=== PATIENT | male | born 1975 | race Caucasian/White ===

== ENCOUNTER 2018-12-22 16:11 | Outpatient (REF) | payer OTHER, SELFPAY ==
--- NOTE | 2018-12-22 15:35 | SKI_PTH ---
PATIENT: Bora Brand LOC: [facility] U#:[id number] AGE/SX: 43/M ROOM: RE12/22/[address]: Abena Brooks MD : 1975 BED: DIS: 12/22/2018 SPEC #: [id number] RECD: 12/22/18 16:17 STATUS: KERRY REDemi #: [id number] SIENNA: 12/22/18 15:[address]: Abena Brooks DEPT: Surgical Specimen RECD BY: Rocio Thompson ENTERED: 12/22/18 16:18 SP TYPE: RON ADAME DR: Shreyas Díaz MD Tissues: 1 - SKIN BIOPSY(SHAVE/PUNCH) Procedures: SKIN LEVEL 4 Comments: [id number]
== END 2018-12-22 16:31 ==
LOC: LBN 16:11
PROVIDERS: PCP Family Medicine; Visit Provider Surgery
DX: L98.8 Other specified disorders of the skin and subcutaneous tissue (principal)
CPT/HCPCS: 88305

== ENCOUNTER 2019-02-23 13:16 | Outpatient (REF) | payer OTHER, SELFPAY ==
--- NOTE | 2019-02-23 12:00 | SOFT_PTH ---
PATIENT: Bora Brand LOC: [facility] U#:[id number] AGE/SX: 43/M ROOM: RE02/23/[address]: LOREE Portillo : 1975 BED: DIS: 02/23/2019 SPEC #: [id number] RECD: 02/23/19 16:53 STATUS: KERRY REQ #: [id number] SIENNA: 02/23/19 12:[address]: Paulette Givens DEPT: Surgical Specimen RECD BY: Kendell Forrest ENTERED: 02/23/19 16:55 SP TYPE: SOFT OTHR DR: Shreyas Díaz MD Tissues: 1 - SOFT TISSUE MISC (INC. LIPOMA) Procedures: GROSS AND MICRO LEVEL 3 Comments: [id number]
== END 2019-02-23 13:36 ==
LOC: LBN 13:16
PROVIDERS: PCP Family Medicine; Visit Provider Physical Therapy Assistant
DX: D17.0 Benign lipomatous neoplasm of skin and subcutaneous tissue of head, face and neck (principal)
CPT/HCPCS: 88304

== ENCOUNTER 2021-04-20 08:59 | Outpatient (CLI) | payer BC, SELFPAY ==
[2021-04-20 12:40] LABS: Cholesterol 332 mg/dL (<200); HDL Cholesterol 25 mg/dL (40-60)
[2021-04-20 12:45] LABS: Hemoglobin A1C 5.4 % (<5.7)
[2021-04-20 12:54] LABS: Triglyceride 2967 mg/dL (<150)
[2021-04-20 13:05] LABS: LDL CHOLESTEROL 63 mg/dL (<100)
== END 2021-04-20 09:00 | disposition home or self-care (01) ==
LOC: LOS 08:59
PROVIDERS: PCP Nurse Practitioner Family; Visit Provider Nurse Practitioner Family
DX: Z13.1 Encounter for screening for diabetes mellitus (principal); Z13.220 Encounter for screening for lipoid disorders
CPT/HCPCS: 36415; 80061; 83721; 83036

== ENCOUNTER 2022-04-01 03:00 | Outpatient (CLI) | payer BC, SELFPAY ==
[2022-04-01 12:59] LABS: Calculated LDL 182 mg/dL (<100); Cholesterol 279 mg/dL (<200); HDL Cholesterol 61 mg/dL (40-60); Triglyceride 183 mg/dL (<150)
== END 2022-04-01 03:01 | disposition home or self-care (01) ==
LOC: LOS 03:02
PROVIDERS: PCP Nurse Practitioner Family; Visit Provider Nurse Practitioner Family
DX: E78.5 Hyperlipidemia, unspecified (principal)
CPT/HCPCS: 36415; 80061

== ENCOUNTER 2023-05-26 04:03 | Outpatient (CLI) | payer BC, SELFPAY ==
[2023-05-26 15:59] LABS: Calculated LDL 66 mg/dL (<100); Cholesterol 149 mg/dL (<200); HDL Cholesterol 58 mg/dL (40-60); Triglyceride 125 mg/dL (<150)
== END 2023-05-26 04:04 | disposition home or self-care (01) ==
LOC: LOS 04:03
PROVIDERS: PCP Nurse Practitioner Family; Visit Provider Nurse Practitioner Family
DX: E78.5 Hyperlipidemia, unspecified (principal)
CPT/HCPCS: 36415; 80061